=== PATIENT | male | born 1985 | race Caucasian/White ===

== ENCOUNTER 2025-05-09 14:02 | Emergency (ER) | payer OTHER ==
[~2025-05-09] VITALS: Ht 182.9 cm; Wt 110.0 kg
[2025-05-09 14:10] VITALS: PULSE 110; RESP 24; TEMP 36.4; O2SAT 99
[2025-05-09] MEDS: BACITRACIN ZINC OINT UDPKT TOP ONE (14:51)
[2025-05-09] MEDS: TETANUS, DIPHTHERIA, PERTUSSIS VAC/PF 0.5ML (>10YR OLD) IM ONE (14:51)
== END 2025-05-09 16:09 | disposition home or self-care (01) ==
LOC: ER 14:57
DX: S51.812A Laceration without foreign body of left forearm, initial encounter (principal); X58.XXXA Exposure to other specified factors, initial encounter; Y93.89 Activity, other specified; Y92.89 Other specified places as the place of occurrence of the external cause; Y99.8 Other external cause status
CPT/HCPCS: 71045; 73090; 12004; 99284; Z7610

== ENCOUNTER 2025-05-11 21:09 | Inpatient (IN) | payer OTHER ==
[~2025-05-11] VITALS: Ht 182.9 cm; Wt 124.3 kg
[2025-05-11 21:14] VITALS: O2SAT 97
[2025-05-11] MEDS ORDERED: CLONIDINE 0.3MG TABLET PO ONE (21:30)
[2025-05-11] MEDS: AMLODIPINE 10MG TABLET PO ONE (21:42)
[2025-05-11] MEDS: CLONIDINE 0.1MG TABLET PO SCH (21:42)
[2025-05-11 23:58] LABS: BASOPHILS % 0.6 % (0.0-2.0); EOSINOPHILS % 0.6 % (0.0-5.0); HEMATOCRIT. 45.5 % (42.0-52.0); HEMOGLOBIN. 15.6 g/dL (14.0-18.0); LYMPHOCYTES % 20.0 % (20.0-50.0); MEAN PLATELET VOLUME 8.9 fl (7.4-10.4); MONOCYTES % 8.5 % (2.0-8.0); NEUTROPHILS % 70.3 % (40.0-76.0); PLATELET 208 x1000/uL (130-400); RED BLOOD CELL COUNT 4.82 mill/uL (4.7-6.1); RED CELL DISTRIBUTION WIDTH 13.0 % (11.6-14.6)
[2025-05-12 00:17] LABS: CREATININE 0.9 mg/dL (0.6-1.3); UREA NITROGEN BLOOD 8 mg/dL (9-23)
[2025-05-12 00:19] LABS: ASPARTATE AMINOTRANSFERASE 27 IU/L (<34)
[2025-05-12 00:20] LABS: BILIRUBIN TOTAL 0.7 mg/dL (0.1-1.0); PROTEIN TOTAL 6.8 g/dL (6.0-8.3)
[2025-05-12 00:43] LABS: TROPONIN I HIGH SENSITIVITY 264 ng/L (3.0-53)
[2025-05-12] MEDS: ASPIRIN 325MG TABLET PO NR (01:11)
[2025-05-12] MEDS: POTASSIUM CHLORIDE 20MEQ/PACKET PO NR ×3 (01:12→16:02)
[2025-05-12] MEDS ORDERED: AMLODIPINE 5MG TABLET PO SCH (03:45)
[2025-05-12] MEDS ORDERED: NITROGLYCERIN 0.4MG TABLET SL SL PRN (03:45)
[2025-05-12] MEDS: ASPIRIN 81MG TABLET PO ONE (03:45)
[2025-05-12] MEDS ORDERED: DOCUSATE SODIUM 100MG CAPSULE PO PRN (03:45)
[2025-05-12] MEDS ORDERED: ONDANSETRON HCL 4MG/2ML INJ IV PRN (03:45)
[2025-05-12] MEDS ORDERED: IPRATROPIUM/ALBUTEROL 0.5-3(2.5)MG/3ML NEB HHN PRN (03:45)
[2025-05-12] MEDS: ENOXAPARIN 150MG/ML SYR SUBCUT SCH (04:00)
[2025-05-12] MEDS: KCL 20MEQ/100ML PREMIX 100 ML IV SCH (04:30)
[2025-05-12 04:50] LABS: CLARITY URINE CLOUDY (CLEAR); COLOR URINE YELLOW (YELLOW); GLUCOSE URINE NEGATIVE (NEGATIVE); KETONES URINE NEGATIVE (NEGATIVE); LEUKOCYTE ESTERASE URINE NEGATIVE (NEGATIVE); NITRITE URINE NEGATIVE (NEGATIVE); OCCULT BLOOD URINE TRACE (NEGATIVE); PH URINE 7.0 (4.5-8.0); PROTEIN URINE TRACE (NEGATIVE); SPECIFIC GRAVITY URINE 1.013 (1.005-1.030); UROBILINOGEN URINE 1.0 E.U./dL (0.2-1.0)
[2025-05-12 04:53] LABS: TROPONIN I HIGH SENSITIVITY 255 ng/L (3.0-53)
[2025-05-12 05:13] LABS: *AMPHETAMINES SCREEN URINE NEGATIVE (NEGATIVE); *BARBITURATES SCREEN URINE NEGATIVE (NEGATIVE); *BENZODIAZEPINES SCREEN URINE NEGATIVE (NEGATIVE); *COCAINE SCREEN URINE NEGATIVE (NEGATIVE); CANNABINOID URINE SCREEN PRESUMPTIVE POSITIVE (NEGATIVE); METHADONE URINE SCREEN NEGATIVE (NEGATIVE); OPIATES URINE SCREEN NEGATIVE (NEGATIVE); PHENCYCLIDINE URINE SCREEN NEGATIVE (NEGATIVE)
[2025-05-12 05:14] VITALS: BP 162/142; PULSE 80; RESP 19; TEMP 36.9184
[2025-05-12 05:14] LABS: ECSTASY MDMA SCREEN URINE NEGATIVE (NEGATIVE)
[2025-05-12 05:23] LABS: RBC URINE 0-2 /hpf (0-2); SQUAMOUS EPITHELIAL CELL URINE FEW /lpf (RARE/1+); WBC URINE 0-2 /hpf (0-2)
[2025-05-12 05:26] LABS: AMORPHOUS SEDIMENT URINE 1+ /lpf; BACTERIA URINE TRACE
[2025-05-12 08:00] VITALS: BP 168/107; PULSE 72; RESP 17; TEMP 36.7; O2SAT 98
[2025-05-12] MEDS: HYDROCHLOROTHIAZIDE 12.5MG CAPSULE PO SCH (08:54)
[2025-05-12] MEDS: PANTOPRAZOLE SODIUM 40 MG/VIAL IV SCH (08:54)
[2025-05-12] MEDS: ASPIRIN 81MG TABLET PO NR (08:54)
[2025-05-12] MEDS: CLOPIDOGREL 75MG TABLET PO SCH (08:54)
[2025-05-12] MEDS: AMLODIPINE 10MG TABLET PO SCH (08:55)
[2025-05-12] MEDS: HYDRALAZINE 20MG/ML VIAL IV PRN (08:58)
[2025-05-12] MEDS: METOPROLOL SUCCINATE 50MG ER TABLET PO SCH (10:03)
[2025-05-12] MEDS: LOSARTAN 25 MG TABLET PO SCH ×2 (11:55→20:24)
[2025-05-12 12:00] VITALS: BP 157/98; PULSE 81; RESP 9; TEMP 37.4; O2SAT 98
[2025-05-12 12:11] LABS: BASOPHILS % 0.4 % (0.0-2.0); EOSINOPHILS % 0.4 % (0.0-5.0); HEMATOCRIT. 45.6 % (42.0-52.0); HEMOGLOBIN. 15.6 g/dL (14.0-18.0); LYMPHOCYTES % 17.5 % (20.0-50.0); MEAN PLATELET VOLUME 9.2 fl (7.4-10.4); MONOCYTES % 8.4 % (2.0-8.0); NEUTROPHILS % 73.3 % (40.0-76.0); PLATELET 217 x1000/uL (130-400); RED BLOOD CELL COUNT 4.83 mill/uL (4.7-6.1); RED CELL DISTRIBUTION WIDTH 13.0 % (11.6-14.6)
[2025-05-12 12:18] LABS: INR 1.0
[2025-05-12 12:25] LABS: CREATININE 0.8 mg/dL (0.6-1.3); UREA NITROGEN BLOOD 6 mg/dL (9-23)
[2025-05-12 12:27] LABS: ASPARTATE AMINOTRANSFERASE 29 IU/L (<34); PHOSPHORUS 3.1 mg/dL (2.5-4.9)
[2025-05-12 12:28] LABS: BILIRUBIN TOTAL 0.8 mg/dL (0.1-1.0); PROTEIN TOTAL 7.0 g/dL (6.0-8.3)
[2025-05-12 12:41] LABS: TROPONIN I HIGH SENSITIVITY 241 ng/L (3.0-53)
[2025-05-12 15:39] LABS: TROPONIN I HIGH SENSITIVITY 235 ng/L (3.0-53)
[2025-05-12 16:00] VITALS: BP 173/110; PULSE 75; RESP 20; TEMP 37; O2SAT 98
[2025-05-12] MEDS: CLONIDINE 0.1MG TABLET PO PRN (18:12)
[2025-05-12 19:57] VITALS: BP 182/118; PULSE 86; RESP 18; TEMP 37.3; O2SAT 97
[2025-05-12] MEDS: ENOXAPARIN 120MG/0.8ML SYR SUBCUT SCH (20:24)
[2025-05-12] MEDS: ATORVASTATIN CALCIUM 40MG TABLET PO SCH (20:24)
[2025-05-12] MEDS: ACETAMINOPHEN 325MG TABLET PO PRN (20:24)
[2025-05-12] MEDS ORDERED: LOSARTAN 25 MG TABLET PO SCH (21:00)
[2025-05-12 22:35] VITALS: BP 183/118; PULSE 78; RESP 17; O2SAT 98
[2025-05-13] VITALS (7 sets, daily range): BP systolic 156–196; BP diastolic 88–117; PULSE 74–86; RESP 17–23; TEMP 36.3–37.2; O2SAT 98–100
[2025-05-13] MEDS: METOPROLOL SUCCINATE 50MG ER TABLET PO SCH (10:06)
[2025-05-13] MEDS: LOSARTAN 50 MG TABLET PO NR (11:51)
[2025-05-13] MEDS ORDERED: METO-385 PO (14:54)
[2025-05-13] MEDS ORDERED: OMEP20CA14 MT (14:54)
[2025-05-13] MEDS ORDERED: CLON0.1T PO (14:54)
[2025-05-13] MEDS ORDERED: CLOP-31 PO (14:54)
[2025-05-13] MEDS ORDERED: LOSA50TA41 PO (14:54)
[2025-05-13] MEDS ORDERED: LIP40 PO (14:54)
[2025-05-13] MEDS ORDERED: AMLO10TA80 PO (14:54)
[2025-05-13] MEDS: CLONIDINE 0.1MG TABLET PO PRN (16:19)
[2025-05-13] MEDS ORDERED: LORAZEPAM 0.5MG TABLET PO PRN (17:15)
[2025-05-13] MEDS: LOSARTAN 50 MG TABLET PO SCH (20:39)
[2025-05-14 00:32] VITALS: BP 161/93; PULSE 73; RESP 17; TEMP 36.8; O2SAT 98
[2025-05-14 04:18] VITALS: BP 143/87; PULSE 67; RESP 12; TEMP 36.7; O2SAT 98
[2025-05-14 08:00] VITALS: BP 189/116; PULSE 79; RESP 15; TEMP 36.9; O2SAT 94
[2025-05-14] MEDS: FAMOTIDINE 20MG TABLET PO SCH (09:02)
[2025-05-14] MEDS: HYDRALAZINE HCL 25MG TABLET PO SCH (10:37)
[2025-05-14 12:00] VITALS: BP 130/80; PULSE 73; RESP 15; TEMP 36.8; O2SAT 97
[2025-05-14] MEDS ORDERED: HYDR25TA78 PO (13:10)
[2025-05-14] MEDS ORDERED: HYDR25TA78 MT (13:11)
[2025-05-14 14:11] VITALS: BP 130/80; PULSE 84; RESP 21; TEMP 98.2
== END 2025-05-14 14:56 | DRG 282 ==
LOC: ER 21:09 → 3WST 05-12 03:27 → EDBEDREQ 05-12 03:34 → EDBEDREQTM 05-12 03:34 → ENRESERV 05-12 03:58
PROVIDERS: ADMIT Student in an Organized Health Care Education/Training Program; ATTEND Student in an Organized Health Care Education/Training Program
DX: I16.1 Hypertensive emergency (principal); I21.A1 Myocardial infarction type 2; E66.9 Obesity, unspecified; E87.6 Hypokalemia; R73.9 Hyperglycemia, unspecified; I10 Essential (primary) hypertension; S51.812A Laceration without foreign body of left forearm, initial encounter; X58.XXXA Exposure to other specified factors, initial encounter; Z79.02 Long term (current) use of antithrombotics/antiplatelets; Z79.899 Other long term (current) drug therapy; Z68.37 Body mass index [BMI] 37.0-37.9, adult; Y93.89 Activity, other specified; Y92.89 Other specified places as the place of occurrence of the external cause; Y99.8 Other external cause status
CPT/HCPCS: 36415; 71045; 80053; 80305; 81003; 82550; 83735; 83880; 84100; 84484; 85025; 93005; 93306; 97166; 99285; A4606; J0360; J1650; J2470; J3480